=== PATIENT | female | born 1995 | race Caucasian/White ===

== ENCOUNTER 2018-03-10 01:39 | Emergency (ER) | payer OTHER ==
[2018-03-10] MEDS ORDERED: PROPOFOL INJ 200 MG/20 ML VIAL IV ONE (01:52)
[2018-03-10] MEDS ORDERED: NORMAL SALINE 500 ML IV ONE (01:53)
--- NOTE | 2018-03-10 02:27 | RADIOLOGY REPORT (SQ) ---
EXAM DESCRIPTION: KNEE RIGHT 2 VIEWS CLINICAL HISTORY: 22 years, Female, patellar dislocation COMPARISON: None. NUMBER OF VIEWS: 3 Findings: Complete lateral dislocation of the patella. Bones, joints, and soft tissues of KNEE RIGHT 2 VIEWS appear otherwise intact. No significant effusion. IMPRESSION: Complete lateral dislocation of the right patella.
--- NOTE | 2018-03-10 03:26 | ER Document Report ---
ED General - General Chief Complaint: Knee Injury Stated Complaint: RIGHT KNEE INJURY Time Seen by Provider: 03/10/18 01:46 Notes: Patient is 22-year-old female who was walking and stepped and felt her kneecap move out. She then fell to the ground. She has been able to get up since then. Her knees remain in a flexed position. No weakness or numbness into her foot. She denies this ever happening before. She has no chronic medical problems and is otherwise healthy. TRAVEL OUTSIDE OF THE [place] IN LAST 30 DAYS: No Past Medical History - Social History Smoking Status: Unknown if Ever Smoked Frequency of alcohol use: None Drug Abuse: None Family History: Reviewed & Not Pertinent Review of Systems - Review of Systems Notes: My Normal Review Basic REVIEW OF SYSTEMS: CONSTITUTIONAL : Denies fever, chills, or sweats. Denies recent illness. MUSCULOSKELETAL: Right knee pain SKIN: skin over the knee is intact. NEUROLOGICAL: Denies sensory or motor loss. ALL OTHER SYSTEMS REVIEWED AND NEGATIVE. Physical Exam - Vital signs Vitals: Resp Pulse Ox 15 98 03/10/18 01:59 03/10/18 01:59 - Notes Notes: General Appearance: Well nourished, alert, cooperative, no acute distress, mild obvious discomfort. Vitals: reviewed, See vital signs table. Head: no swelling or tenderness to the head Eyes: PERRL, EOMI, Conjuctiva clear Mouth: No decreasd moisture Throat: No tonsillar inflammation, No airway obstruction, No lymphadenopathy Neck: Supple, no neck tenderness, no neck swelling Lungs: No wheezing, No rales, No rhonci, No accessory muscle use, good air exchange bilaterally. Heart: Normal rate, Regular rythm, No murmur, no rub Extremities: strength 5/5 in all extremities, patient's right knee is maintained in a flexed position with patella of the lateral aspect of the knee underneath the skin. Good distal pulses and sensation in the right foot. Good capillary refill in all toes. Skin: warm, dry, appropriate color, no rash Neuro: speech clear, oriented x 3, normal affect, responds appropriately to questions. Course - Re-evaluation Re-evalutation: 03/10/18 06:04 Patient recovered fully from her sedation. She looks and feels well. We have placed her in a knee immobilizer. We will have her follow-up with orthopedic doctor for reevaluation. I encourage her to use crutches and wear the knee immobilizer until reevaluated by the orthopedist. I encouraged her return to ER if she has recurrence of dislocation of the knee or if she has any further concerns or feels unwell. Patient foot has remained neurovascularly intact before and after patella dislocation reduction. Patient agrees with plan will be discharged home. Dictation of this chart was performed using voice recognition software; therefore, there may be some unintended grammatical errors. - Vital Signs Vital signs: Temp Pulse Resp BP Pulse Ox 78 18 118/83 98 03/10/18 03:45 03/10/18 04:01 03/10/18 04:01 03/10/18 04:01 Procedures - Conscious Sedation Conscious sedation Consent obtained: Yes Prior complications: Procedural sedation Normal healthy pt.: P1. - ASA Classification Airway Evaluation: Normal anatomy Mallampati Classification: Class 1 Used during procedure: Suction available, IV access obtained, Pulse ox on pt., monitoring coordinator on pt. Medications administered: Diprivan Reversal agents: None I personally performed/intraservice time: 30 min or less Complications: No - Joint Reduction/Fracture Care right patella Consent obtained: Yes Conscious sedation: Yes Pre-procedure NV exam: Yes - normal Fracture: Other - patella dislocation Manipulation comment: extension of knee with gentle pressure to lateral patella Post-procedure NV exam: Yes - normal Post-reduction x-ray: Joint reduced Reduction attempts: 1 Complications: No Discharge - Discharge Clinical Impression: Patellar dislocation Qualifiers: Encounter type: initial encounter Laterality: right Qualified Code(s): S83.004A - Unspecified dislocation of right patella, initial encounter Condition: Good Disposition: HOME, SELF-CARE Instructions: Knee Immobilizing Splint ([facility]), Oral Narcotic Medication ([facility]) Additional Instructions: Please use the crutches and wear the knee immobilizer until you follow up with the orthopedist, Dr. Bustillo, this week. Please call their office Sunday morning to make a close follow up appointment. Please return to the ER if you have worsening pain, numbness or weakness into your foot, or if you feel unwell. Prescriptions: Hydrocodone/Acetaminophen [[place] 5-325 mg Tablet] 1 tab PO Q4 PRN #8 tablet PRN Reason: For Breakthrough Pain Referrals: RORY BUSTILLO DO [ACTIVE STAFF] - 03/11/18
[2018-03-10] MEDS ORDERED: HYDROCODONE/ACETAMINOPHEN 5-325 MG (6 TAB/ER DISP) PO PRN (04:05)
[2018-03-10] MEDS ORDERED: HYDROCODONE/ACETAMINOPHEN 5-325 MG TABLET PO ONE (04:05)
[2018-03-10 04:53] VITALS: BP 118/83
== END 2018-03-10 04:30 | disposition home or self-care (01) ==
LOC: ER 01:39
PROC: 0QSDXZZ Reposition Right Patella, External Approach (ICD-10-PCS; principal; 2018-03-10)
DX: S83.004A Unspecified dislocation of right patella, initial encounter (principal); M25.561 Pain in right knee; W19.XXXA Unspecified fall, initial encounter
CPT/HCPCS: 99284; 96360; 99152; 73560; 27560; L1830; J7040; J2704